=== PATIENT | male | born 1970 | race Caucasian/White ===

== ENCOUNTER 2024-05-24 12:43 | Emergency (ER) | payer OTHER, SELFPAY ==
[2024-05-24 13:10] VITALS: BP 107/53; PULSE 66; RESP 18; TEMP 37.2; O2SAT 94; BMI 21.6
--- NOTE | 2024-05-24 13:16 | DI.RAD.S_ITS ---
PROCEDURE: XR CHEST 2V INDICATIONS: cough x1 week TECHNIQUE: 2 views of the chest were acquired. COMPARISON: None. FINDINGS: Surgical changes and devices: None. Lungs and pleura: Right lower lobe airspace opacity. No pneumothorax. Small right pleural effusion. Mediastinum: Mediastinal contours are normal. Heart size is normal. Bones and chest wall: No suspicious bony abnormalities. Soft tissues appear unremarkable. IMPRESSION: Right lower lobe pneumonia. Dictated by: Gio Dubois M.D. on 05/24/2024 at 12:47 Approved by: Gio Dubois M.D. on 05/24/2024 at 12:47
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
[2024-05-24] MEDS: AMOXICILLIN/CLAV 875/125 MG 1 TAB PO (15:11)
[2024-05-24 15:35] VITALS: BP 115/60; PULSE 75; RESP 18; O2SAT 96
[2024-05-24 16:20] VITALS: BP 108/56; PULSE 88; RESP 16; TEMP 36.6; O2SAT 99
== END 2024-05-24 16:20 | disposition home or self-care (01) ==
PROVIDERS: Emergency Provider Student in an Organized Health Care Education/Training Program; PCP Internal Medicine Gastroenterology
DX: J18.9 Pneumonia, unspecified organism (principal)
CPT/HCPCS: 71046; 99283